=== PATIENT | female | born 1990 | race Caucasian/White ===

== ENCOUNTER 2021-02-08 19:58 | Emergency (ER) | payer OTHER ==
[~2021-02-08] VITALS: Ht 160 cm; Wt 68.0 kg
[2021-02-08 19:58] VITALS: BP 132/76
--- NOTE | 2021-02-08 20:16 | NUR ---
PT SEEN AND EXAMINED BY DR. BLEDSOE. NO NURSING INTERVENTIONS PROVIDED.
[2021-02-08] MEDS ORDERED: FAMO-92 PO (20:33)
== END 2021-02-08 21:46 | disposition home or self-care (01) ==
LOC: MED 19:58
DX: R10.9 Unspecified abdominal pain (principal); R11.10 Vomiting, unspecified; R19.7 Diarrhea, unspecified; K21.9 Gastro-esophageal reflux disease without esophagitis; Z79.899 Other long term (current) drug therapy
CPT/HCPCS: 99283; 99284

== ENCOUNTER 2022-04-04 17:56 | Emergency (ER) | payer OTHER ==
[~2022-04-04] VITALS: Ht 160 cm; Wt 65.8 kg
[~2022-04-04 17:56] MED LIST: FAMO-92 PO
[2022-04-04 18:26] VITALS: BP 122/89
--- NOTE | 2022-04-04 18:28 | NUR ---
PT AMBULATED TO LOBBY. URINE COLLECTED
--- NOTE | 2022-04-04 19:48 | NUR ---
Pelvic exam performed by PA BLAIR with MANUEL Bojorquez at bedside for entire examination. Patient tolerated procedure well. Patient assisted to position of comfort after examination.
[2022-04-04] MEDS ORDERED: METR-520 PO (19:56)
[2022-04-04 20:21] VITALS: BP 120/78
--- NOTE | 2022-04-04 20:21 | NUR ---
Patient discharged with v/s stable. Written and verbal after care instructions given and explained. Patient alert, oriented and verbalized understanding of instructions. Ambulatory with steady gait. All questions addressed prior to discharge. ID band removed. Patient advised to follow up with PMD. Rx of Metronidazole given. Patient educated on indication of medication including possible reaction and side effects. Opportunity to ask questions provided and answered.
[2022-04-04 20:23] LABS: APPEARANCE,URINE CLEAR (CLEAR); BILIRUBIN,URINE NEGATIVE (NEGATIVE); BLOOD, URINE NEGATIVE (NEGATIVE); COLOR,URINE YELLOW (YELLOW); LEUKOCYTE ESTERASE ,URINE NEGATIVE (NEGATIVE); NITRITE, URINE NEGATIVE (NEGATIVE); UGLUCOSE NEGATIVE (NEGATIVE)
== END 2022-04-04 20:21 | disposition home or self-care (01) ==
LOC: MED 17:56
DX: K31.89 Other diseases of stomach and duodenum (principal); K21.9 Gastro-esophageal reflux disease without esophagitis
CPT/HCPCS: 81003; 81025; 87210; 87491; 99283

== ENCOUNTER 2023-05-13 09:22 | Emergency (ER) | payer OTHER ==
[~2023-05-13] VITALS: Ht 160 cm; Wt 59.0 kg
[~2023-05-13 09:22] MED LIST changes: +METR-520 PO
[2023-05-13 09:30] VITALS: BP 129/85; PULSE 81; RESP 18; TEMP 98.5; O2SAT 100
[2023-05-13] MEDS ORDERED: DICYCLOMINE HCL LIQUID 20 MG, ALUMINUM HYD/MAG/SIMETHICONE 30 ML, LIDOCAINE VISCOUS 2% ... PO ONE ×3 (09:35)
[2023-05-13] MEDS ORDERED: DICYCLOMINE HCL LIQUID 10 MG/5 ML UDC ONE (09:44)
[2023-05-13] MEDS ORDERED: ALUMINUM HYD/MAG/SIMETHICONE 30 ML UDC ONE (09:44)
[2023-05-13 09:54] LABS: BASOPHILS % (AUTO) 1.1 % (0.0-2.0); EOSINOPHILS # (AUTO) 0.1 K/uL (0-0.4); EOSINOPHILS % (AUTO) 3.2 % (0.0-4.0); HEMATOCRIT 34.3 % (36-48); HEMOGLOBIN 11.5 g/dL (12.0-16.0); LYMPHOCYTES # (AUTO) 1.2 K/uL (2.5-16.5); LYMPHOCYTES % (AUTO) 26.3 % (20.5-51.1); MEAN CORPUSCULAR HEMOGLOBIN 27 pg (27-31); MEAN CORPUSCULAR HGB CONC 33 g/dL (33-37); MEAN CORPUSCULAR VOLUME 80.6 fL (80-94); MONOCYTES # (AUTO) 0.4 K/uL (0.8-1.0); NEUTROPHILS # (AUTO) 2.6 K/uL (1.8-7.7); NEUTROPHILS % (AUTO) 59.4 % (42.2-75.2); PLATELET COUNT (AUTO) 352 K/uL (140-450); RED BLOOD CELL COUNT(AUTO) 4.26 MIL/uL (4.20-5.40); RED CELL DISTRIBUTION WIDTH 13.8 % (11.6-13.7); WHITE BLOOD COUNT (AUTO) 4.4 K/uL (4.8-10.8)
[2023-05-13 10:13] LABS: ANION GAP 11.9 (8-16); CALCIUM 8.9 mg/dL (8.5-10.1); CARBON DIOXIDE 28.5 mmol/L (21-32); CREATININE 0.7 mg/dL (0.6-1.3); POTASSIUM 3.4 mmol/L (3.5-5.1)
[2023-05-13 10:44] LABS: THYROID STIMULATING HORMONE 3.59 uIU/mL (0.34-3.74)
[2023-05-13 11:13] VITALS: BP 129/85; PULSE 81; RESP 18; TEMP 98.5; O2SAT 100
== END 2023-05-13 11:14 | disposition home or self-care (01) ==
LOC: MED 09:22
DX: R00.2 Palpitations (principal); K21.9 Gastro-esophageal reflux disease without esophagitis; Z79.899 Other long term (current) drug therapy
CPT/HCPCS: 36415; 80048; 81025; 84443; 84484; 85025; 93005; 99284